=== PATIENT | female | born 1945 | race African-American/Black ===

== ENCOUNTER 2017-06-28 01:07 | Emergency (ER) | payer MEDICARE, MEDICAID ==
[~2017-06-28] VITALS: Ht 165.1 cm; Wt 63.6 kg
[~2017-06-28 01:07] MED LIST: ASPI-1159 PO; ATOR-2 PO; CYCL30DR EACHEYE; HYDR25TA PO; LISI40TA4 PO; METF10002 PO; NIFE30TA83 PO
[2017-06-28 02:10] LABS: BASOPHILS % 1.1 % (0.0-2.0); EOSINOPHILS % 5.5 % (0.0-5.0); HEMATOCRIT. 37.7 % (36.0-48.0); HEMOGLOBIN. 12.4 g/dL (12.0-16.0); LYMPHOCYTES % 28.3 % (20.0-50.0); MEAN CORPUSCULAR HEMOGLOBIN 28.9 pg (28.0-32.0); MEAN CORPUSCULAR VOLUME 88.1 fL (81.0-99.0); MONOCYTES % 8.9 % (2.0-8.0); NEUTROPHILS % 56.2 % (40.0-76.0); PLATELET 199 x1000/uL (130-400); RED BLOOD CELL COUNT 4.28 mill/uL (4.2-5.4); RED CELL DISTRIBUTION WIDTH 13.3 % (11.6-14.6)
[2017-06-28 02:18] LABS: PROTHROMBIN TIME 10.8 sec (9.4-11.6)
[2017-06-28 02:20] LABS: CHLORIDE 103 mEq/L (98-107)
[2017-06-28 02:25] LABS: CARBON DIOXIDE 30 mEq/L (21-32); ETHANOL BLOOD < 10 mg/dL
[2017-06-28] MEDS ORDERED: CLONIDINE 0.1MG TABLET PO STA (04:29)
[2017-06-28 05:05] VITALS: BP 211/111
== END 2017-06-28 05:09 | disposition home or self-care (01) ==
LOC: ER 01:28
DX: R04.0 Epistaxis (principal); I16.0 Hypertensive urgency; H54.41 Blindness, right eye, normal vision left eye; E11.9 Type 2 diabetes mellitus without complications; E78.00 Pure hypercholesterolemia, unspecified; I25.10 Atherosclerotic heart disease of native coronary artery without angina pectoris; I10 Essential (primary) hypertension; F17.210 Nicotine dependence, cigarettes, uncomplicated; I25.2 Old myocardial infarction; Z88.8 Allergy status to other drugs, medicaments and biological substances; Z79.82 Long term (current) use of aspirin; Z86.73 Personal history of transient ischemic attack (TIA), and cerebral infarction without residual deficits; Z91.14 Patient's other noncompliance with medication regimen
CPT/HCPCS: 36415; 80048; 85025; 85610; 85730; 99284; G0482